=== PATIENT | male | born 1980 | race African-American/Black ===

== ENCOUNTER 2018-03-14 06:44 | Emergency (ER) | payer OTHER ==
[2018-03-14 06:51] VITALS: BP 128/73; PULSE 64; RESP 20; TEMP 98.4
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
--- NOTE | 2018-03-14 08:03 | ED ---
Upper Extremity HPI - General Chief Complaint: Extremity Injury, Upper Stated Complaint: wrist injury Time Seen by Provider: 03/14/18 07:30 Source: patient, family Mode of arrival: ambulatory Limitations: no limitations - History of Present Illness Initial Comments: This is a 37-year-old male with a benign history who tripped and fell last evening around 8:30 PM he landed on his right hand was outstretched. He complains of pain to the right wrist no other injury does have some chronic back pain. This is not exacerbated by the event. He denies any head neck or back pain is new no loss of function is upper or lower extremities. Patient is right-hand dominant. No other complaints this time is believed the tetanus shots are up-to-date. MD Complaint: Injury to:: right, wrist - Related Data Home Medications Medication Instructions Recorded Confirmed Ibuprofen [Motrin Ib] 1,000 mg PO Q6H PRN 03/14/18 03/14/18 Previous Rx's Medication Instructions Recorded Ibuprofen 800 mg PO Q6HR PRN #20 tablet 03/14/18 Ibuprofen [Motrin] 600 mg PO Q6HR PRN #12 tab 03/14/18 Allergies Allergy/AdvReac Type Severity Reaction Status Date / Time No Known Allergies Allergy Verified 03/14/18 07:12 Review of Systems ROS Statement: Those systems with pertinent positive or pertinent negative responses have been documented in the HPI. ROS Other: All systems not noted in ROS Statement are negative. Past Medical History Past Medical History: No Reported History History of Any Multi-Drug Resistant Organisms: None Reported Past Surgical History: No Surgical Hx Reported Past Psychological History: No Psychological Hx Reported Smoking Status: Current every day smoker Past Alcohol Use History: Occasional Past Drug Use History: Marijuana General Exam - General Exam Comments Initial Comments: This is a well-developed well-nourished awake alert oriented times 3 male demonstrates a Jacinto Coma Scale of 15 Limitations: no limitations General appearance: alert, in no apparent distress Head exam: Present: atraumatic, normocephalic, normal inspection Eye exam: Present: normal appearance, PERRL, EOMI. Absent: scleral icterus, conjunctival injection, periorbital swelling ENT exam: Present: normal exam, mucous membranes moist Neck exam: Present: normal inspection. Absent: tenderness, meningismus, lymphadenopathy Respiratory exam: Present: normal lung sounds bilaterally. Absent: respiratory distress, wheezes, rales, rhonchi, stridor Cardiovascular Exam: Present: regular rate, normal rhythm, normal heart sounds. Absent: systolic murmur, diastolic murmur, rubs, gallop, clicks Extremities exam: Present: tenderness, normal capillary refill, other ( Tenderness palpation of the right wrist especially radial aspect. No tenderness proximal to the wrist for mostly elbow shoulder. There is abrasion seen over the palm or aspect of the right hand with no active bleeding no foreign body seen. No suture repair indicated. There is full range of motion of the fingers no other injury noted). Absent: full ROM Back exam: Present: full ROM Neurological exam: Present: alert, oriented X3, CN II-XII intact Psychiatric exam: Present: normal affect, normal mood Skin exam: Present: warm, dry, normal color. Absent: intact, rash Course Vital Signs 03/14/18 06:47 Temperature 98.4 F Pulse Rate 64 Respiratory 20 Rate Blood Pressure 128/73 O2 Sat by Pulse 100 Oximetry Procedures - Orthopedic Splinting/Casting Injury #1 Side: right Upper Extremity Injury Location: wrist Upper Extremity Immobilizer: volar splint (Short arm OCL good neurovascular exam afterwards patient tolerated it well) Medical Decision Making - Medical Decision Making The patient will be discharged he will be following up with orthopedics. He did take 400 mg ibuprofen a couple hours ago he will be given Tylenol and more Motrin. - Radiology Data Radiology results: report reviewed (Distal radius fracture noted.), image reviewed Disposition Clinical Impression: Closed right radial fracture Disposition: HOME SELF-CARE Condition: Good Instructions: Wrist Fracture in Adults (ED) Prescriptions: Ibuprofen [Motrin] 600 mg PO Q6HR PRN #12 tab PRN Reason: Pain Ibuprofen 800 mg PO Q6HR PRN #20 tablet PRN Reason: Pain Is patient prescribed a controlled substance at d/c from ED?: Yes When asked, does pt state using other controlled substances?: No If opioid is for acute pain is fill amount 7 days or less?: Yes If Rx opioid, was Start Talking consent form obtained?: No Referrals: None,Stated [Primary Care Provider] - 1-2 days Chavez Brown DO [Doctor of Osteopathic Medicine] - 1-2 days
[2018-03-14] MEDS ORDERED: ACETAMINOPHEN TAB 500 MG TAB PO STA (08:11)
[2018-03-14] MEDS ORDERED: IBUPROFEN 400 MG TAB PO STA (08:11)
== END 2018-03-14 08:15 | disposition home or self-care (01) ==
LOC: EC 06:44
DX: S52.501A Unspecified fracture of the lower end of right radius, initial encounter for closed fracture (principal); M54.9 Dorsalgia, unspecified; F17.200 Nicotine dependence, unspecified, uncomplicated; W01.0XXA Fall on same level from slipping, tripping and stumbling without subsequent striking against object, initial encounter; Y92.009 Unspecified place in unspecified non-institutional (private) residence as the place of occurrence of the external cause
CPT/HCPCS: 29125; 99283

== ENCOUNTER → 2018-03-21 | Outpatient (CLI) | payer OTHER ==
--- NOTE | 2018-03-22 10:08 | CT ---
EXAMINATION TYPE: CT wrist RT wo con DATE OF EXAM: 03/21/2018 COMPARISON: Radiographs dated 03/14/2018 HISTORY: Right wrist pain after fall. CT DLP: 229 mGycm Automated exposure control for dose reduction was used. FINDINGS: As demonstrated on the prior radiographs of 03/14/2018 there is a minimally displaced comminuted intra -articular fracture of the distal radius with overlying soft tissue swelling. The radial fragment is nondisplaced and a ulnar sided component is displaced approximately 1 mm medially. At the dorsal aspe ct of the wrist there is distraction of the fracture fragment approximately 1.6 mm. There are 2 sites of intra-articular extension on series 8 image 8. Distal ulna appears intact. There is no dislocatio n of the wrist. The carpal carpal joint spaces are maintained. Small degenerative cysts are seen of the lunate and tr iquetrum. Scaphoid appears intact as do the remaining carpal bones and proximal metacarpals. Evaluati on of the ligament and tendons on CT is limited, even further limited given surrounding soft tissue s welling. IMPRESSION: REDEMONSTRATION OF A MINIMALLY DISPLACED COMMINUTED INTRA-ARTICULAR DISTAL RIGHT RADIAL FRACTURE WITH OVERLYING SOFT TISSUE SWELLING IS SEEN ON THE PRIOR RADIOGRAPHS OF 03/14/2018.
== END | disposition home or self-care (01) ==
LOC: RADCTMAIN 18:36
PROVIDERS: ATTEND Orthopaedic Surgery
DX: S52.571A Other intraarticular fracture of lower end of right radius, initial encounter for closed fracture (principal)

== ENCOUNTER 2018-10-11 15:18 | Emergency (ER) | payer OTHER ==
[2018-10-11 15:22] VITALS: BP 132/89; PULSE 75; RESP 18; TEMP 99
[2018-10-11] MEDS ORDERED: ACETAMINOPHEN TAB 500 MG TAB PO STA (15:53)
[2018-10-11] MEDS ORDERED: IBUPROFEN 800 MG TAB PO STA (15:53)
--- NOTE | 2018-10-11 15:59 | ED ---
General Adult HPI - General Chief complaint: Skin/Abscess/Foreign Body Stated complaint: swollen jaw Time Seen by Provider: 10/11/18 15:27 Source: patient Mode of arrival: ambulatory Limitations: no limitations - History of Present Illness Initial comments: Patient is a 38-year-old male presents with a chief complaint of dental pain. Patient states that his pain started yesterday. He states that about 6 months ago he felt to crack but it did not give him any pain. Patient cannot identify inciting incident to his pain. There are no aggravating or alleviating factors. Timing is constant. Patient denies any fever, chills, trouble swallowing, or trouble talking. - Related Data Home Medications Medication Instructions Recorded Confirmed Ibuprofen [Motrin Ib] 600 mg PO Q6H PRN 03/14/18 10/11/18 Aspirin [Adult Low Dose Aspirin EC] 243 mg PO Q8H PRN 10/11/18 10/11/18 Previous Rx's Medication Instructions Recorded Acetaminophen Tab [Tylenol Tab] 1,000 mg PO Q6HR #28 tablet 10/11/18 Ibuprofen [Motrin] 800 mg PO Q6H #21 tab 10/11/18 Penicillin V Potassium [Pen Vee K] 500 mg PO QID #28 tablet 10/11/18 Allergies Allergy/AdvReac Type Severity Reaction Status Date / Time No Known Allergies Allergy Verified 10/11/18 15:36 Review of Systems ROS Statement: Those systems with pertinent positive or pertinent negative responses have been documented in the HPI. ROS Other: All systems not noted in ROS Statement are negative. ENT: Reports: dental pain Past Medical History Past Medical History: No Reported History History of Any Multi-Drug Resistant Organisms: None Reported Past Surgical History: No Surgical Hx Reported Past Psychological History: No Psychological Hx Reported Smoking Status: Current every day smoker Past Alcohol Use History: Occasional Past Drug Use History: Marijuana General Exam Limitations: no limitations General appearance: alert, in no apparent distress Head exam: Present: atraumatic, normocephalic Eye exam: Present: normal appearance ENT exam: Present: normal exam, mucous membranes moist, other (Dental decay and fracture of tooth 30) Neck exam: Present: normal inspection Respiratory exam: Present: normal lung sounds bilaterally, respiratory distress Cardiovascular Exam: Present: regular rate, normal rhythm GI/Abdominal exam: Present: soft Rectal exam: Present: deferred Extremities exam: Present: normal inspection Back exam: Present: normal inspection Neurological exam: Present: alert, oriented X3, CN II-XII intact, normal gait Psychiatric exam: Present: normal affect, normal mood Skin exam: Present: warm, dry, intact Course Vital Signs 10/11/18 15:20 Temperature 99 F Pulse Rate 75 Respiratory 18 Rate Blood Pressure 132/89 O2 Sat by Pulse 99 Oximetry Medical Decision Making - Medical Decision Making Patient presents with a chief complaint of dental pain. On initial evaluation, vitals are stable, patient is in no acute distress. On examination, there is decay and tenderness of tooth #30. There is no obvious abscess, no crepitus of the soft tissue in the neck or chest. Patient was instructed that he needs to follow-up with a dentist as soon as possible. Patient was read Motrin, Tylenol , and penicillin. Patient was instructed to follow up in 1-2 days, return to the emergency department if symptoms worsen or change. Disposition Clinical Impression: Pain, dental, Tooth decay Disposition: HOME SELF-CARE Condition: Good Instructions: Toothache (ED) Prescriptions: Acetaminophen Tab [Tylenol Tab] 1,000 mg PO Q6HR #28 tablet Ibuprofen [Motrin] 800 mg PO Q6H #21 tab Penicillin V Potassium [Pen Vee K] 500 mg PO QID #28 tablet Is patient prescribed a controlled substance at d/c from ED?: No Referrals: Andrew Salmon MD [Primary Care Provider] - 1-2 days
== END 2018-10-11 16:23 | disposition home or self-care (01) ==
LOC: EC 15:18
DX: K02.9 Dental caries, unspecified (principal); S02.5XXA Fracture of tooth (traumatic), initial encounter for closed fracture; R06.03 Acute respiratory distress; F17.200 Nicotine dependence, unspecified, uncomplicated; X58.XXXA Exposure to other specified factors, initial encounter
CPT/HCPCS: 99283

== ENCOUNTER 2018-10-26 08:20 | Emergency (ER) | payer OTHER ==
[2018-10-26 08:37] VITALS: RESP 16
--- NOTE | 2018-10-26 09:19 | ED ---
General Adult HPI - General Chief complaint: Extremity Injury, Upper Stated complaint: rt arm pain, dental pain Time Seen by Provider: 10/26/18 08:41 Source: patient, RN notes reviewed Mode of arrival: ambulatory Limitations: no limitations - History of Present Illness Initial comments: 38-year-old male presents emergency Department with complaints of right arm swelling, pain and dental pain. Patient states she's had dental problems for a while states is posted dentist on Sunday was states he ran on antibiotics and symptoms started to worse in. Patient states he has mild swelling to his right lower jaw region. No fever no chills. Patient also no swelling of his right forearm region the last few days. Patient denies any trauma. Denies any history of blood clots. Patient states that she just feels sore worse with movement. Patient denies any paresthesias. - Related Data Home Medications Medication Instructions Recorded Confirmed Ibuprofen [Motrin Ib] 600 mg PO Q6H PRN 03/14/18 10/11/18 Aspirin [Adult Low Dose Aspirin EC] 243 mg PO Q8H PRN 10/11/18 10/11/18 Previous Rx's Medication Instructions Recorded Acetaminophen Tab [Tylenol Tab] 1,000 mg PO Q6HR #28 tablet 10/11/18 Ibuprofen [Motrin] 800 mg PO Q6H #21 tab 10/11/18 Penicillin V Potassium [Pen Vee K] 500 mg PO QID #28 tablet 10/11/18 Clindamycin HCl 300 mg PO Q6HR #40 cap 10/26/18 Ibuprofen [Motrin] 600 mg PO Q8HR PRN #30 tab 10/26/18 Allergies Allergy/AdvReac Type Severity Reaction Status Date / Time No Known Allergies Allergy Verified 10/26/18 08:37 Review of Systems ROS Statement: Those systems with pertinent positive or pertinent negative responses have been documented in the HPI. ROS Other: All systems not noted in ROS Statement are negative. Past Medical History Past Medical History: No Reported History History of Any Multi-Drug Resistant Organisms: None Reported Past Surgical History: No Surgical Hx Reported Past Psychological History: No Psychological Hx Reported Smoking Status: Current every day smoker Past Alcohol Use History: Occasional Past Drug Use History: Marijuana General Exam Limitations: no limitations General appearance: alert, in no apparent distress Head exam: Present: atraumatic, normocephalic, normal inspection Eye exam: Present: normal appearance, PERRL, EOMI. Absent: scleral icterus, conjunctival injection, periorbital swelling ENT exam: Present: mucous membranes moist, TM's normal bilaterally, normal external ear exam. Absent: normal oropharynx (Dental Neelam right lower with no drainable abscess no trismus, mild swelling to 2 mandible region) Neck exam: Present: normal inspection, full ROM. Absent: tenderness, meningismus, lymphadenopathy Respiratory exam: Present: normal lung sounds bilaterally. Absent: respiratory distress, wheezes, rales, rhonchi, stridor Cardiovascular Exam: Present: regular rate, normal rhythm, normal heart sounds. Absent: systolic murmur, diastolic murmur, rubs, gallop, clicks Extremities exam: Present: other (Right forearm there is swelling over the brachioradialis region, no erythema no increased warmth, radial pulses bilaterally full range of motion ) Skin exam: Present: warm, dry Course Vital Signs 10/26/18 08:30 Temperature 98.3 F Pulse Rate 81 Respiratory 16 Rate Blood Pressure 120/84 O2 Sat by Pulse 97 Oximetry Medical Decision Making - Medical Decision Making 38-year-old male presented for right arm pain dental pain, ultrasound was obtained, x-ray obtained shows evidence of hematoma. Patient placed on antibiotics for his dental infection, pain medication return parameters were discussed. Disposition Clinical Impression: Hematoma of arm, Pain, dental, Tooth decay Disposition: HOME SELF-CARE Condition: Stable Instructions: Hematoma (ED) Additional Instructions: Please return to the Emergency Department if symptoms worsen or any other concerns. Prescriptions: Clindamycin HCl 300 mg PO Q6HR #40 cap Ibuprofen [Motrin] 600 mg PO Q8HR PRN #30 tab PRN Reason: Pain Is patient prescribed a controlled substance at d/c from ED?: No Referrals: Andrew Salmon MD [Primary Care Provider] - 1-2 days Time of Disposition: 11:50
--- NOTE | 2018-10-26 09:27 | XR ---
EXAMINATION TYPE: XR forearm RT , 2 VIEWS DATE OF EXAM ORDERED: 10/26/2018 HISTORY: Pain. COMPARISON: None. FINDINGS: No fracture, dislocation or other acute osseous lesion is seen. IMPRESSION: NO ACUTE OSSEOUS LESION.
--- NOTE | 2018-10-26 11:39 | US ---
EXAMINATION TYPE: US extremity nonvasc mass RT DATE OF EXAM: 10/26/2018 COMPARISON: NONE CLINICAL HISTORY: Pain. EC patient with right posterior forearm pain and swelling; patient denies tra fern, IV/ or drug use in this area. Right posterior Forearm US findings: Fluid area seen surrounding muscle and noted anterior and latera l to bone. Fluid area size = 6.8 x 2.3 x 0.8cm and is compared to normal left posterior forearm at sa me level. Superficial veins seen in same area are compressible. IMPRESSION: NONSPECIFIC FLUID COLLECTION ADJACENT TO THE MUSCLES OF THE FOREARM. THIS MAY REPRESENT AN ORGANIZING HEMATOMA.
[2018-10-26] MEDS ORDERED: ACET/COD 300 MG/30 MG STARTER PACK 6 TAB BTL PO STA (11:50)
[2018-10-26 12:04] VITALS: BP 110/68; PULSE 72; TEMP 98
== END 2018-10-26 12:00 | disposition home or self-care (01) ==
LOC: EC 08:20
DX: S40.021A Contusion of right upper arm, initial encounter (principal); K02.9 Dental caries, unspecified; F17.200 Nicotine dependence, unspecified, uncomplicated; X50.9XXA Other and unspecified overexertion or strenuous movements or postures, initial encounter
CPT/HCPCS: 99284

== ENCOUNTER 2019-02-05 23:07 | Emergency (ER) | payer OTHER ==
[2019-02-05 23:17] VITALS: BP 147/97; PULSE 80; RESP 20; TEMP 98.2
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
--- NOTE | 2019-02-05 23:58 | CT ---
EXAM: CT Head Without Intravenous Contrast CLINICAL HISTORY: Pain TECHNIQUE: Axial computed tomography images of the head/brain without intravenous contrast. CTDI is 0.085, 0.085, 45.2, 10.5 mGy and DLP is 1280.2 mGy-cm. This CT exam was performed using one or more of the following dose reduction techniques: automated exposure control, adjustment of the mA and/or kV according to patient size, and/or use of iterative reconstruction technique. COMPARISON: No relevant prior studies available. FINDINGS: Brain: Unremarkable. No acute hemorrhage, large hypodensity, or significant mass effect. Ventricles: Unremarkable. No ventriculomegaly. Bones/joints: Unremarkable. No acute fracture. Soft tissues: Unremarkable. Sinuses: Mild mucosal thickening in the paranasal sinuses. Mastoid air cells: Unremarkable. IMPRESSION: No acute intracranial hemorrhage or calvarial fracture. EXAM: CT Cervical Spine Without Intravenous Contrast CLINICAL HISTORY: Pain TECHNIQUE: Axial computed tomography images of the cervical spine without intravenous contrast. CTDI is 0.085, 0.085, 45.2, 10.5 mGy and DLP is 1280.2 mGy-cm. This CT exam was performed using one or more of the following dose reduction techniques: automated exposure control, adjustment of the mA and/or kV according to patient size, and/or use of iterative reconstruction technique. COMPARISON: No relevant prior studies available. FINDINGS: Vertebrae: No acute fracture or malalignment. Straightening of the normal cervical lordosis. Discs/spinal canal/neural foramina: No acute findings. No spinal canal stenosis. Soft tissues: Unremarkable. Lung apices: Small right apical subpleural bleb. IMPRESSION: No acute fracture or malalignment.
[2019-02-06] MEDS ORDERED: IBUPROFEN 400 MG TAB PO STA (00:05)
== END 2019-02-06 00:20 | disposition home or self-care (01) ==
LOC: EC 23:07
DX: S16.1XXA Strain of muscle, fascia and tendon at neck level, initial encounter (principal); M25.561 Pain in right knee; F17.200 Nicotine dependence, unspecified, uncomplicated; V49.59XA Passenger injured in collision with other motor vehicles in traffic accident, initial encounter; Y92.410 Unspecified street and highway as the place of occurrence of the external cause
CPT/HCPCS: 70450; 72125; 99284